=== PATIENT | male | born 1970 | race Caucasian/White ===

== ENCOUNTER 2016-10-09 19:16 | Emergency (ER) | payer OTHER ==
[~2016-10-09] VITALS: Ht 175.3 cm; Wt 90.7 kg
[2016-10-09 22:11] VITALS: BP 153/92
== END 2016-10-09 22:11 | disposition home or self-care (01) ==
LOC: ED 19:16
DX: S33.5XXA Sprain of ligaments of lumbar spine, initial encounter (principal); S13.4XXA Sprain of ligaments of cervical spine, initial encounter; V49.3XXA Car occupant (driver) (passenger) injured in unspecified nontraffic accident, initial encounter; Y93.89 Activity, other specified; Y92.89 Other specified places as the place of occurrence of the external cause; Y99.8 Other external cause status
CPT/HCPCS: J2270; Q0162

== ENCOUNTER 2017-10-21 15:35 | Inpatient (IN) | payer OTHER ==
[~2017-10-21] VITALS: Ht 175.3 cm; Wt 88.6 kg
[2017-10-21 16:02] VITALS: Ht 175.3 cm; Wt 88.6 kg
[2017-10-21 17:24] LABS: BASOPHIL % 0.2 % (0-2); PLATELET COUNT 254 x10^3mcL (130-400)
[2017-10-21 17:25] LABS: RED CELL DISTRIBUTION WIDTH 14.6 % (11.5-14.5)
[2017-10-21 18:12] LABS: CALCIUM 8.6 mg/dL (8.5-10.1); CARBON DIOXIDE 28.1 mmol/L (21-32); CHLORIDE SERUM 104 mmol/L (98-107); CREATININE SERUM 1.3 mg/dL (0.7-1.3); GFR1 > 60 mL/min; GLUCOSE SERUM 118 mg/dL (74-106); POTASSIUM SERUM 4.5 mmol/L (3.5-5.1); SODIUM SERUM 141 mmol/L (136-145)
[2017-10-21 18:16] LABS: ALKALINE PHOSPHATASE 73 U/L (46-116); ALT/SGPT 28 U/L (16-63); AST/SGOT 16 U/L (15-37); BILIRUBIN TOTAL 1.48 mg/dL (0.20-1.00); TOTAL PROTEIN, SERUM 7.6 g/dL (6.4-8.2)
[2017-10-21 18:19] LABS: ALBUMIN 3.2 g/dL (3.4-5.0)
[2017-10-21] MEDS ORDERED: PERCOCET1 TA5 PO (18:49)
[2017-10-21] MEDS ORDERED: ATENOLOL50 MG PO (18:49)
[2017-10-21 20:14] VITALS: BP 146/97
[2017-10-22 05:17] VITALS: BP 131/84
[2017-10-22 07:24] LABS: BASOPHIL % 0.5 % (0-2); PLATELET COUNT 224 x10^3mcL (130-400); RED CELL DISTRIBUTION WIDTH 14.4 % (11.5-14.5)
[2017-10-22 07:58] LABS: ALKALINE PHOSPHATASE 78 U/L (46-116); ALT/SGPT 23 U/L (16-63); AST/SGOT 14 U/L (15-37); BILIRUBIN TOTAL 0.8 mg/dL (0.20-1.00); CALCIUM 8.9 mg/dL (8.5-10.1); CARBON DIOXIDE 26.1 mmol/L (21-32); CHLORIDE SERUM 102 mmol/L (98-107); CREATININE SERUM 1.1 mg/dL (0.7-1.3); GFR1 > 60 mL/min; GLUCOSE SERUM 140 mg/dL (74-106); SODIUM SERUM 138 mmol/L (136-145); TOTAL PROTEIN, SERUM 7.9 g/dL (6.4-8.2)
[2017-10-22 09:13] VITALS: BP 151/106
[2017-10-22 10:30] VITALS: BP 138/93
[2017-10-22 16:19] VITALS: BP 130/87
[2017-10-22 17:26] VITALS: BP 130/87
== END 2017-10-22 18:00 | disposition home or self-care (01) | DRG 554 ==
LOC: ED 15:35 → MU 18:55
PROVIDERS: Emergency Medicine; Internal Medicine
DX: M19.031 Primary osteoarthritis, right wrist (principal); K57.32 Diverticulitis of large intestine without perforation or abscess without bleeding; G80.9 Cerebral palsy, unspecified; M10.431 Other secondary gout, right wrist; I10 Essential (primary) hypertension; Z79.899 Other long term (current) drug therapy; Z98.1 Arthrodesis status
CPT/HCPCS: J1170; J2270; J2930; J7030; J7512

== ENCOUNTER 2018-02-04 11:26 | Emergency (ER) | payer OTHER ==
[~2018-02-04] VITALS: Ht 175.3 cm; Wt 91.6 kg
[~2018-02-04 11:26] MED LIST: ATENOLOL50 MG PO; PERCOCET1 TA5 PO
[2018-02-04 11:28] VITALS: Ht 175.3 cm; Wt 91.6 kg
[2018-02-04 15:03] VITALS: BP 124/78
== END 2018-02-04 15:03 | disposition home or self-care (01) ==
LOC: ED 11:26
DX: G89.29 Other chronic pain (principal); M54.5 Low back pain; R11.0 Nausea; M54.2 Cervicalgia; I10 Essential (primary) hypertension; Z98.890 Other specified postprocedural states
CPT/HCPCS: J1885; J3010; Q0162

== ENCOUNTER 2018-06-06 01:22 | Emergency (ER) | payer OTHER ==
[~2018-06-06] VITALS: Ht 175.3 cm; Wt 94.8 kg
[2018-06-06 01:37] VITALS: Ht 175.3 cm; Wt 94.8 kg
[2018-06-06 02:15] LABS: BASOPHIL % 0.9 % (0-2); PLATELET COUNT 210 x10^3mcL (130-400); RED CELL DISTRIBUTION WIDTH 14.9 % (11.5-14.5)
[2018-06-06 02:27] LABS: CALCIUM 8.3 mg/dL (8.5-10.1); CARBON DIOXIDE 26.6 mmol/L (21-32); CREATININE SERUM 1.4 mg/dL (0.7-1.3)
[2018-06-06 02:34] LABS: ALBUMIN 3.9 g/dL (3.4-5.0); BILIRUBIN TOTAL 0.51 mg/dL (0.20-1.00); TOTAL PROTEIN, SERUM 7.2 g/dL (6.4-8.2)
[2018-06-06 06:32] VITALS: BP 142/94
== END 2018-06-06 06:32 | disposition home or self-care (01) ==
LOC: ED 01:22
PROVIDERS: Emergency Medicine
DX: R10.12 Left upper quadrant pain (principal); I10 Essential (primary) hypertension
CPT/HCPCS: J1885; J2270; J7030; Q9967

== ENCOUNTER 2018-06-10 11:27 | Emergency (ER) | payer OTHER ==
[~2018-06-10] VITALS: Ht 175.3 cm; Wt 93.0 kg
[2018-06-10 11:49] VITALS: Ht 175.3 cm; Wt 93.0 kg
[2018-06-10 12:38] LABS: BASOPHIL % 0.4 % (0-2); PLATELET COUNT 252 x10^3mcL (130-400); RED CELL DISTRIBUTION WIDTH 14.4 % (11.5-14.5)
[2018-06-10 12:41] LABS: CALCIUM 8.9 mg/dL (8.5-10.1); CARBON DIOXIDE 27.2 mmol/L (21-32); CREATININE SERUM 1.5 mg/dL (0.7-1.3); POTASSIUM SERUM 3.5 mmol/L (3.5-5.1)
[2018-06-10 12:56] LABS: ALBUMIN 3.9 g/dL (3.4-5.0); BILIRUBIN TOTAL 0.8 mg/dL (0.20-1.00)
[2018-06-10 15:17] VITALS: BP 148/97
== END 2018-06-10 15:17 | disposition home or self-care (01) ==
LOC: ED 11:27
PROVIDERS: Emergency Medicine
DX: K29.00 Acute gastritis without bleeding (principal); I10 Essential (primary) hypertension; Z98.890 Other specified postprocedural states; G80.9 Cerebral palsy, unspecified
CPT/HCPCS: J2270; J2405; Q9967

== ENCOUNTER 2018-07-15 12:45 | Emergency (ER) | payer OTHER ==
[~2018-07-15] VITALS: Ht 175.3 cm; Wt 94.8 kg
[2018-07-15 12:52] VITALS: Ht 175.3 cm; Wt 94.8 kg
[2018-07-15 17:52] VITALS: BP 153/96
== END 2018-07-15 17:52 | disposition home or self-care (01) ==
LOC: ED 12:45
DX: H91.91 Unspecified hearing loss, right ear (principal); H73.891 Other specified disorders of tympanic membrane, right ear; I10 Essential (primary) hypertension; M10.9 Gout, unspecified; G80.9 Cerebral palsy, unspecified; Z98.890 Other specified postprocedural states

== ENCOUNTER 2018-09-25 21:21 | Emergency (ER) | payer OTHER ==
[~2018-09-25] VITALS: Ht 175.3 cm; Wt 96.2 kg
[2018-09-25 21:41] VITALS: BP 128/95; Ht 175.3 cm; Wt 96.2 kg
[2018-09-25 22:27] LABS: BASOPHIL % 0.9 % (0-2); PLATELET COUNT 241 x10^3mcL (130-400); RED CELL DISTRIBUTION WIDTH 14.5 % (11.5-14.5)
[2018-09-25 22:54] LABS: CALCIUM 8.2 mg/dL (8.5-10.1); CARBON DIOXIDE 23.9 mmol/L (21-32); CREATININE SERUM 1.6 mg/dL (0.7-1.3); POTASSIUM SERUM 3.9 mmol/L (3.5-5.1)
[2018-09-25 22:58] LABS: ALBUMIN 3.9 g/dL (3.4-5.0); BILIRUBIN TOTAL 0.3 mg/dL (0.20-1.00); C REACTIVE PROTEIN 0.9 mg/dL (<=0.9); TOTAL PROTEIN, SERUM 7.8 g/dL (6.4-8.2); URIC ACID 10.1 mg/dL (3.5-7.2)
[2018-09-25 23:18] LABS: ERYTHROCYTE SED RATE 17 mm/hr (0-15)
== END 2018-09-25 23:39 | disposition home or self-care (01) ==
LOC: ED 21:21
PROVIDERS: Emergency Medicine
DX: M54.12 Radiculopathy, cervical region (principal); E79.0 Hyperuricemia without signs of inflammatory arthritis and tophaceous disease; I10 Essential (primary) hypertension; G80.9 Cerebral palsy, unspecified; Z98.890 Other specified postprocedural states
CPT/HCPCS: 36415; J1885

== ENCOUNTER 2018-10-03 23:18 | Emergency (ER) | payer OTHER ==
[~2018-10-03] VITALS: Ht 175.3 cm; Wt 99.3 kg
[2018-10-03 23:25] VITALS: Ht 175.3 cm; Wt 99.3 kg
[2018-10-04 02:02] VITALS: BP 138/96
== END 2018-10-04 02:02 | disposition home or self-care (01) ==
LOC: ED 23:18
DX: M54.12 Radiculopathy, cervical region (principal); M54.14 Radiculopathy, thoracic region; I10 Essential (primary) hypertension; Z98.890 Other specified postprocedural states
CPT/HCPCS: J2270; Q0162

== ENCOUNTER 2018-10-12 17:08 | Emergency (ER) | payer OTHER ==
[~2018-10-12] VITALS: Ht 175.3 cm; Wt 98.0 kg
[2018-10-12 17:18] VITALS: Ht 175.3 cm; Wt 98.0 kg
[2018-10-12 19:28] LABS: BASOPHIL % 0.5 % (0-2); PLATELET COUNT 274 x10^3mcL (130-400)
[2018-10-12 19:29] LABS: RED CELL DISTRIBUTION WIDTH 15.5 % (11.5-14.5)
[2018-10-12 19:31] LABS: CALCIUM 8.2 mg/dL (8.5-10.1); CARBON DIOXIDE 21.3 mmol/L (21-32); CREATININE SERUM 1.7 mg/dL (0.7-1.3)
[2018-10-12 19:36] LABS: ALBUMIN 3.6 g/dL (3.4-5.0); BILIRUBIN TOTAL 0.4 mg/dL (0.20-1.00); C REACTIVE PROTEIN 1.1 mg/dL (<=0.9); TOTAL PROTEIN, SERUM 7.4 g/dL (6.4-8.2)
[2018-10-12 20:25] LABS: ERYTHROCYTE SED RATE 19 mm/hr (0-15)
[2018-10-12 20:47] VITALS: BP 104/74
== END 2018-10-12 20:47 | disposition home or self-care (01) ==
LOC: ED 17:08
PROVIDERS: Emergency Medicine
DX: R19.7 Diarrhea, unspecified (principal); M25.561 Pain in right knee; M10.9 Gout, unspecified
CPT/HCPCS: J2001

== ENCOUNTER 2018-10-26 19:05 | Emergency (ER) | payer OTHER ==
[~2018-10-26] VITALS: Ht 175.3 cm; Wt 97.6 kg
[2018-10-26 19:15] VITALS: Ht 175.3 cm; Wt 97.6 kg
[2018-10-26 21:39] VITALS: BP 134/76
== END 2018-10-26 21:39 | disposition home or self-care (01) ==
LOC: ED 19:05
DX: S90.31XA Contusion of right foot, initial encounter (principal); L03.115 Cellulitis of right lower limb; I10 Essential (primary) hypertension; M10.9 Gout, unspecified; Z98.890 Other specified postprocedural states; X58.XXXA Exposure to other specified factors, initial encounter; Y93.89 Activity, other specified; Y92.89 Other specified places as the place of occurrence of the external cause; Y99.8 Other external cause status
CPT/HCPCS: J1885

== ENCOUNTER 2019-02-11 15:01 | Emergency (ER) | payer OTHER ==
[~2019-02-11] VITALS: Ht 175.3 cm; Wt 96.2 kg
[2019-02-11 15:35] VITALS: BP 155/108; Ht 175.3 cm; Wt 96.2 kg
== END 2019-02-11 18:10 | disposition home or self-care (01) ==
LOC: ED 15:01
DX: H10.89 Other conjunctivitis (principal); I10 Essential (primary) hypertension; M10.9 Gout, unspecified; G80.9 Cerebral palsy, unspecified; Z98.890 Other specified postprocedural states

== ENCOUNTER 2019-11-04 19:52 | Emergency (ER) | payer OTHER ==
[~2019-11-04] VITALS: Ht 175.3 cm; Wt 98.4 kg
[2019-11-04 19:55] VITALS: Ht 175.3 cm; Wt 98.4 kg
[2019-11-04 22:29] VITALS: BP 162/116
== END 2019-11-04 22:29 | disposition home or self-care (01) ==
LOC: ED 19:52
DX: H57.89 Other specified disorders of eye and adnexa (principal); I10 Essential (primary) hypertension; G80.9 Cerebral palsy, unspecified; Z98.890 Other specified postprocedural states

== ENCOUNTER 2019-12-14 18:22 | Emergency (ER) | payer OTHER ==
[~2019-12-14] VITALS: Ht 175.3 cm; Wt 95.3 kg
[2019-12-14 18:55] VITALS: BP 143/107; Ht 175.3 cm; Wt 95.3 kg
== END 2019-12-14 20:44 | disposition home or self-care (01) ==
LOC: ED 18:22
DX: M25.562 Pain in left knee (principal)
CPT/HCPCS: J1885; Q0092